=== PATIENT | female | born 1970 | race Caucasian/White ===

== ENCOUNTER → 2016-03-01 | Outpatient (CLI) | payer OTHER ==
--- NOTE | 2016-03-01 15:55 | CT ---
CT Coronary Calcium Score 1059 hours History: Mother with history of heart disease at an early age. Technique: Prospectively gated noncontrast images through the chest without contrast. Dose reduction techniques were utilized. Findings: Calcium score according to the Agatston-Janowitz criteria is 0 which places the patient in the 10th percentile for age. This means 90% of the patients within this age group will have a higher calcium score. Noncardiac evaluation: Lungs: There is a smooth noncalcified pulmonary nodule within the posterior lateral aspect of the jaqueline gula measuring 6 x 5 mm on series 3 image 28. No additional pulmonary nodules are identified. Mediastinum: Heart size is normal. No pericardial effusion or pericardial thickening is present. Cent ral pulmonary vessels are normal. Aorta: Visualized lower thoracic aorta is normal in caliber. Spine: Visualized osseous structures lower chest are normal. Impression: 1. The patient is at low risk. A calcium score of 0 places the patient in the 10th percentile rank fo r age. 2. Recommend standard prevention guidelines. 3. Probably benign noncalcified pulmonary nodule posterior lateral lingula. Consider follow-up noncon trast CT of the chest in 12 months to confirm stability and benign features.
== END ==
LOC: FIMAGING 09:54
PROVIDERS: ATTEND Internal Medicine
DX: Z82.49 Family history of ischemic heart disease and other diseases of the circulatory system (principal)